=== PATIENT | female | born 1985 | race Caucasian/White ===

== ENCOUNTER 2020-11-29 21:29 | Emergency (ER) | payer BC, OTHER, SELFPAY ==
[2020-11-29 21:23] VITALS: BP 110/67; PULSE 76; RESP 18; TEMP 36.5; O2SAT 99; BMI 27.4
--- NOTE | 2020-11-29 21:36 | [facility].EDOD ---
ED Disposition Clinical Impression: Poisoning by opiate or related narcotic Disposition: Home, Self-Care Condition on Discharge: Good Instructions: DI for Drug Overdose in Adults Additional Instructions: see pcp for follow up Referrals: Provider,Referral, [Primary Care Provider] - - Critical Care Critical Care Time: No Attestation: On 11/29/20, the high probability of a clinically significant, sudden or life threatening deterioration of the following system(s) required my full and direct attention, intervention and personal management. The time I documented below is in addition to time spent performing reported procedures but includes the following listed in this critical care notation. Medical Decision Making - Medical Records Medical records reviewed: Yes: I reviewed the patient's medical records. - Francis Inquiry Pt receiving controlled substance: No Vital Signs: 11/29/20 21:23 11/29/20 22:40 Temperature 97.7 F Temperature Source Oral Pulse Rate 94 H Pulse Rate [Right Brachial] 76 Respiratory Rate 18 Blood Pressure 111/72 Blood Pressure [Right Arm] 110/67 Blood Pressure Mean [Right Arm] 81 Blood Pressure Source [Right Arm] Automatic Cuff Blood Pressure Position [Right Arm] Sitting 02 Sat by Pulse Oximetry 99 99 Oxygen Delivery Method Room Air - Lab Data Lab results reviewed: Yes: I reviewed the patient's lab results. Lab Results 11/29/20 21:45: WBC 6.5, RBC 4.84, Hgb 13.8, Hct 42.3, MCV 87.5, MCH 28.6, MCHC 32.7, RDW 14.5, Plt Count 298, MPV 8.6, Neut % (Auto) 50.3, Lymph % (Auto) 40.9, Rock % (Auto) 5.4, Eos % (Auto) 2.8, Baso % (Auto) 0.6, Neut # (Auto) 3.3, Lymph # (Auto) 2.6, Rock # (Auto) 0.4, Eos # (Auto) 0.2, Baso # (Auto) 0.0 11/29/20 21:45: Sodium 143, Potassium 3.6, Chloride 107, Carbon Dioxide 22, Anion Gap 17.6 H, BUN 23 H, Creatinine 1.10 H, Estimated Creat Clear 78, Estimated GFR 56 L, Est GFR ( Amer) 68, Glucose 111 H, Calcium 9.2, Total Bilirubin 0.4, AST 27, ALT 22, Alkaline Phosphatase 72, Troponin I < 0.01, Total Protein 8.3 H, Albumin 4.5, Globulin 3.8 H, Albumin/Globulin Ratio 1.2, Salicylates < 1.0 L, Acetaminophen < 10 L 11/29/20 21:45: Plasma/Serum Alcohol < 10 Result diagrams: 11/29/20 21:45 11/29/20 21:45 Orders (Tests/Meds): ED MEDICATIONS Generic Name Dose Route Start Last Admin Trade Name Freq PRN Reason Stop Dose Admin Sodium Chloride 8 ml 11/29/20 22:30 Sodium Chloride 0.9% 10ml Vial IV 12/29/20 22:29 NEEDED PRN dilute pepcid Discontinued Medications Generic Name Dose Route Start Last Admin Trade Name Freq PRN Reason Stop Dose Admin Famotidine 20 mg 11/29/20 22:30 11/29/20 22:32 Famotidine 20mg/2ml Vial IV 11/29/20 22:31 20 mg ONCE ONE Administration Metoclopramide HCl 10 mg 11/29/20 22:30 11/29/20 22:31 Metoclopramide Hcl 10mg/2ml Vial IVP 11/29/20 22:31 10 mg ONCE ONE Administration Ondansetron HCl 4 mg 11/29/20 22:30 11/29/20 22:31 Ondansetron 4mg/2ml Vial IV 11/29/20 22:31 4 mg ONCE ONE Administration ORDERS Category Date Time Status Drug Screen,Urine Stat Lab 11/29/20 21:30 Ordered Troponin I Q3H Lab 11/30/20 00:45 Ordered Troponin I Q3H Lab 11/30/20 03:45 Ordered Urinalysis and Microscopic Stat Lab 11/29/20 21:30 Ordered - ECG Data Tracing #1 Normal Sinus Rhythm: Yes Ischemic changes: non-specific ST-T wave changes Medical Decision Narrative: improved and stable at this time Overdose HPI - General Chief Complaint: Overdose Stated Complaint: OD on heroin Time Seen by Provider: 11/29/20 21:35 Mode of Arrival: EMS Source of Information: Patient, EMS, Medical Record Limitations: No Limitations Description of Symptoms (Recalled from ER Triage Doc. by RN): pt presents after having suspected heroin overdose. pt is alert, oriented to self and place. aware of situation. denies using heroin, just smoked some weed. states she has only done
--- NOTE | 2020-11-29 21:38 | ECG_ITS ---
APPROVED REPORT Exam: Resting ECG HR:96 bpm ECG Measurements Heart Rate 96 AXES MT 140 P 63 QRSd 82 QRS 50 QT 370 T 45 QTc 467 Conclusion Normal sinus rhythm normal ECG Electronically signed by : Justin Núñez, 11/30/2020 08:50:51
[2020-11-29 21:52] LABS: Basophils % 0.6 % (0.1-2.0); Eosinophils # 0.2 K/mm3 (0.0-0.4); Eosinophils % 2.8 % (0.1-12.0); Hematocrit 42.3 % (37.0-47.0); Hemoglobin 13.8 g/dL (12.2-16.2); Lymphocytes # 2.6 K/mm3 (0.7-4.5); Lymphocytes % 40.9 % (10-50); Mean Corpuscular HGB Conc 32.7 g/dL (31.8-35.4); Mean Corpuscular Hemoglobin 28.6 pg (27.0-31.2); Mean Corpuscular Volume 87.5 fl (81-99); Mean Platelet Volume 8.6 fl (7.4-10.4); Monocytes # 0.4 K/mm3 (0.1-1.0); Monocytes % 5.4 % (1.7-9.3); Neutrophils # 3.3 K/mm3 (1.8-7.8); Neutrophils % 50.3 % (37.0-80.0); Platelet Count 298 K/mm3 (142-424); Red Blood Count 4.84 M/mm3 (4.20-5.40); Red Cell Distribution Width 14.5 % (11.5-17.5); White Blood Count 6.5 K/mm3 (4.8-10.8)
[2020-11-29 22:02] LABS: Alanine Aminotransferase 22 U/L (12-78); Albumin Level 4.5 g/dl (3.5-5.0); Albumin/Globulin Ratio 1.2 (1.1-1.8); Alkaline Phosphatase 72 U/L (38-126); Anion Gap 17.6 mEq/L (5-15); Aspartate Amino Transferase 27 U/L (14-36); Bilirubin,Total 0.4 mg/dl (0.2-1.3); Blood Urea Nitrogen 23 mg/dl (7-17); Calcium 9.2 mg/dl (8.4-10.2); Carbon Dioxide 22 mmol/L (22.0-30.0); Chloride 107 mmol/L (98-107); Creatinine Clearance Estimated 78 mL/min (50-200); Estimated Glomerular Filt Rate 56 ml/min (>60); GFR (African American) 68 ML/MIN (>60); Globulin 3.8 g/dL (1.3-3.2); Glucose 111 mg/dl (74-100); Potassium 3.6 mmoL/L (3.5-5.1); Sodium 143 mmol/L (136-145); Total Protein,Serum 8.3 g/dl (6.3-8.2)
[2020-11-29 22:05] LABS: Acetaminophen < 10 ug/ml (10-30); Ethyl Alcohol < 10 mg/dl (0-10); Salicylate < 1.0 mg/dL (2.0-20.0)
[2020-11-29 22:15] LABS: Troponin I < 0.01 ng/ml (0.00-0.034)
--- NOTE | 2020-11-29 22:16 | PC.NURSE ---
patient refused CXR
[2020-11-29 22:40] VITALS: BP 111/72; PULSE 94; O2SAT 99
[2020-11-29 23:26] VITALS: BP 129/73; PULSE 88; RESP 18; TEMP 36.7; O2SAT 99
== END 2020-11-29 23:29 | disposition home or self-care (01) ==
PROVIDERS: Emergency Provider Emergency Medicine
DX: T40.1X1A Poisoning by heroin, accidental (unintentional), initial encounter (principal)
CPT/HCPCS: 80053; 80329; 84484; 85025; 93005; 96365; 96375; 99282; J2405